=== PATIENT | male | born 1965 | race Caucasian/White ===

== ENCOUNTER 2016-07-21 18:09 | Emergency (ER) | payer OTHER ==
[2016-07-21] MEDS ORDERED: SODIUM CHLORIDE 0.9% 1,000 ML IV ONE (18:23)
[2016-07-21] MEDS ORDERED: ONDANSETRON 4 MG/2 ML VIAL IVP STA (18:24)
[2016-07-21] MEDS ORDERED: HYDROmorphone 1 MG/ML 1 ML SYRINGE IVP STA ×2 (18:24→22:16)
--- NOTE | 2016-07-21 18:26 | ED ---
Abdominal Pain HPI - General Chief Complaint: Abdominal Pain Stated Complaint: side pain Time Seen by Provider: 07/21/16 18:19 Source: patient, RN notes reviewed Mode of arrival: ambulatory Limitations: no limitations - History of Present Illness Initial Comments: Patient is a 50-year-old absence emergency room for evaluation of right-sided abdominal pain and flank pain. Patient states the pain began around 2:30 this afternoon. Patient states pain began as a dull throbbing pain. Patient states since then the pain got worse. Patient states he can't get comfortable no matter which way he weighs. Patient states the pain is not worse with movement. Patient states he did have a kidney stone about 30 years ago. Patient states she is not sure if this is the same as his previous kidney stone pain. Patient denies any pain or burning during urination, trouble urinating or blood in urine. Patient states he had one episode of loose stools before arrival. Patient states he had one episode of vomiting. Patient states he had 2 hernia surgeries when he was an infant. Patient denies any other abdominal surgeries. Patient has no fevers or chills. Patient denies chest pain or shortness of breath. Patient states having 10 out of 10 constant throbbing pain. Patient denies taking anything for his symptoms. - Related Data Previous Rx's Medication Instructions Recorded HYDROcodone/APAP 5-325MG [[place] 1 tab PO Q6HR PRN #15 tab 07/21/16 5-325] Ibuprofen [Motrin] 800 mg PO Q6HR PRN #20 tab 07/21/16 Ondansetron Odt [Zofran Odt] 4 mg PO Q8HR PRN #12 tab 07/21/16 Tamsulosin HCl [Flomax] 0.4 mg PO DAILY #10 cap.er.24h 07/21/16 Allergies Allergy/AdvReac Type Severity Reaction Status Date / Time No Known Allergies Allergy Verified 07/21/16 18:34 Review of Systems ROS Statement: Those systems with pertinent positive or pertinent negative responses have been documented in the HPI. ROS Other: All systems not noted in ROS Statement are negative. Past Medical History Past Medical History: No Reported History Additional Past Medical History / Comment(s): kidney stones History of Any Multi-Drug Resistant Organisms: None Reported Past Surgical History: Hernia Repair Past Psychological History: No Psychological Hx Reported Smoking Status: Current every day smoker Past Alcohol Use History: None Reported Past Drug Use History: None Reported General Exam - General Exam Comments Initial Comments: Pacing around the exam room, uncomfortable secondary to pain Limitations: no limitations General appearance: alert Head exam: Present: atraumatic, normocephalic, normal inspection Eye exam: Present: normal appearance ENT exam: Present: normal exam Neck exam: Present: normal inspection Respiratory exam: Present: normal lung sounds bilaterally. Absent: respiratory distress Cardiovascular Exam: Present: regular rate, normal rhythm, normal heart sounds GI/Abdominal exam: Present: soft, tenderness (RLQ), normal bowel sounds. Absent : distended, guarding, rebound, rigid Extremities exam: Present: normal inspection Back exam: Present: normal inspection, CVA tenderness (R). Absent: CVA tenderness (L) Neurological exam: Present: alert, oriented X3, CN II-XII intact, normal gait Psychiatric exam: Present: normal affect, normal mood Skin exam: Present: warm, dry, intact, normal color. Absent: rash Course Vital Signs 07/21/16 07/21/16 07/21/16 18:12 21:34 22:48 Temperature 97.3 F L 99.3 F 98.4 F Pulse Rate 88 85 82 Respiratory 20 18 16 Rate Blood Pressure 146/90 119/66 117/69 O2 Sat by Pulse 94 L 94 L Oximetry Medical Decision Making - Medical Decision Making Patient is a 50-year-old male presents emergency room for evaluation of flank pain. CT abdomen/pelvis: There are several right renal colic to light. There is a obstructing calculus at the right ureteral pelvic junction with perinephritic edema and hydronephrosis. Patient states he is feeling better after medications given. Will send patient home with pain medications and have her follow-up with urologist. Patient states she understands everything that was discussed with him. Return parameters discussed. Case discussed with Dr. Aguilar. - Lab Data Result diagrams: 07/21/16 18:55 07/21/16 18:55 Lab Results 07/21/16 07/21/16 07/21/16 Range/Units 18:55 18:55 20:15 WBC 12.2 H (3.8-10.6) k/uL RBC 5.95 H (4.30-5.90) m/uL Hgb 17.8 H (13.0-17.5) gm/dL Hct 51.5 (39.0-53.0) % MCV 86.6 (80.0-100.0) fL MCH 29.9 (25.0-35.0) pg MCHC 34.5 (31.0-37.0) g/dL RDW 12.8 (11.5-15.5) % Plt Count 291 (150-450) k/uL Neutrophils % 84 % Lymphocytes % 11 % Monocytes % 4 % Eosinophils % 1 % Basophils % 1 % Neutrophils # 10.2 H (1.3-7.7) k/uL Lymphocytes # 1.3 (1.0-4.8) k/uL Monocytes # 0.4 (0-1.0) k/uL Eosinophils # 0.1 (0-0.7) k/uL Basophils # 0.1 (0-0.2) k/uL Sodium 142 (137-145) mmol/L Potassium 4.3 (3.5-5.1) mmol/L Chloride 108 H (98-107) mmol/L Carbon Dioxide 20 L (22-30) mmol/L Anion Gap 14 mmol/L BUN 18 (9-20) mg/dL Creatinine 0.90 (0.66-1.25) mg/dL Est GFR (MDRD) Af Amer >60 (>60 ml/min/1.73 sqM) Est GFR (MDRD) Non-Af >60 (>60 ml/min/1.73 sqM) Glucose 110 H (74-99) mg/dL Calcium 10.6 H (8.4-10.2) mg/dL Total Bilirubin 1.0 (0.2-1.3) mg/dL AST 31 (17-59) U/L ALT 44 (21-72) U/L Alkaline Phosphatase 73 (38-126) U/L Total Protein 7.6 (6.3-8.2) g/dL Albumin 4.8 (3.5-5.0) g/dL Urine Color Yellow Urine Appearance Turbid (Clear) Urine pH 8.5 H (5.0-8.0) Ur Specific [place] 1.020 (1.001-1.035) Urine Protein 1+ H (Negative) Urine Glucose (UA) Negative (Negative) Urine Ketones 2+ H (Negative) Urine Blood Moderate H (Negative) Urine Nitrate Negative (Negative) Urine Bilirubin Negative (Negative) Urine Urobilinogen <2.0 (<2.0) mg/dL Ur Leukocyte Esterase Negative (Negative) Urine RBC 165 H (0-5) /hpf Urine WBC 1 (0-5) /hpf Amorphous Sediment Many H (None) /hpf - Radiology Data Radiology results: report reviewed, image reviewed Disposition Clinical Impression: Ureteral stone Disposition: HOME SELF-CARE Condition: Good Instructions: Kidney Stones (ED), Flank Pain (ED) Additional Instructions: Drink plenty of fluids. Take medications as needed. Please follow-up with a urologist for further evaluation. If any new symptom arises or symptoms worsen, return to ER as soon as possible. Prescriptions: HYDROcodone/APAP 5-325MG [[place] 5-325] 1 tab PO Q6HR PRN #15 tab PRN Reason: Pain Ibuprofen [Motrin] 800 mg PO Q6HR PRN #20 tab PRN Reason: Pain Ondansetron Odt [Zofran Odt] 4 mg PO Q8HR PRN #12 tab PRN Reason: Nausea Tamsulosin HCl [Flomax] 0.4 mg PO DAILY #10 cap.er.24h Referrals: Antonio Casarez MD [STAFF PHYSICIAN] - 1-2 days Time of Disposition: 22:12
[2016-07-21 19:09] LABS: Basophils # (A) 0.1 k/uL (0-0.2); Basophils % (A) 1 %; Eosinophils # (A) 0.1 k/uL (0-0.7); Eosinophils % (A) 1 %; HCT 51.5 % (39.0-53.0); HDW 2.79; HGB 17.8 gm/dL (13.0-17.5); Luc # (Auto) 0.12; Luc % (Auto) 1; Lymphocytes # (A) 1.3 k/uL (1.0-4.8); Lymphocytes % (A) 11 %; MCH 29.9 pg (25.0-35.0); MCHC 34.5 g/dL (31.0-37.0); MCV 86.6 fL (80.0-100.0); Mean Platelet Volume 7.6; Monocytes # (A) 0.4 k/uL (0-1.0); Monocytes % (A) 4 %; Neutrophils # (A) 10.2 k/uL (1.3-7.7); Neutrophils % (A) 84 %; RBC 5.95 m/uL (4.30-5.90); RDW 12.8 % (11.5-15.5); WBC 12.2 k/uL (3.8-10.6); WBC (Perox) 11.38
[2016-07-21 19:15] LABS: ALT 44 U/L (21-72); AST 31 U/L (17-59); Alkaline Phosphatase 73 U/L (38-126); Anion Gap 14 mmol/L; Blood Urea Nitrogen 18 mg/dL (9-20); Calcium 10.6 mg/dL (8.4-10.2); Carbon Dioxide 20 mmol/L (22-30); Chloride 108 mmol/L (98-107); Glucose 110 mg/dL (74-99); Non-African American GFR(MDRD) >60 (>60 ml/min/1.73 sqM); Potassium 4.3 mmol/L (3.5-5.1); Sodium 142 mmol/L (137-145); Total Protein 7.6 g/dL (6.3-8.2)
--- NOTE | 2016-07-21 19:17 | XR ---
EXAMINATION TYPE: XR KUB DATE OF EXAM: 07/21/2016 7:10 PM COMPARISON: NONE HISTORY: Right lower quadrant pain TECHNIQUE: 2 views FINDINGS: Bowel gas pattern is normal. There is no sign of intestinal obstruction or pneumoperitoneum . Fecal pattern is normal. Lung bases are clear. There are no pathologic calcifications over the kidn eys. IMPRESSION: Nonacute abdomen.
[2016-07-21] MEDS ORDERED: KETOROLAC 30 MG/ML 1 ML VIAL IVP STA (19:45)
[2016-07-21 21:00] LABS: Amorphous Sediment,Urine Many /hpf; Appearance,Urine Turbid (Clear); Bilirubin,Urine Negative (Negative); Glucose,Urine (UA) Negative (Negative); Ketones,Urine 2+ (Negative); Leukocyte Esterase,Urine Negative (Negative); Nitrite,Urine Negative (Negative); PH, Urine 8.5 (5.0-8.0); Particle Count 21870; Protein,Urine 1+ (Negative); RBC,Urine 165 /hpf (0-5); UA Billing (MACRO vs. MICRO) MICRO; Urobilinogen,Urine <2.0 mg/dL (<2.0); WBC,Urine 1 /hpf (0-5)
[2016-07-21] MEDS ORDERED: SODIUM CHLORIDE 0.9% 500 ML IV ONE (21:01)
[2016-07-21] MEDS ORDERED: TAMSULOSIN 0.4 MG CAP.ER.24H PO STA (21:02)
--- NOTE | 2016-07-21 21:41 | CT ---
EXAMINATION TYPE: CT abdomen pelvis wo con DATE OF EXAM: 07/21/2016 9:24 PM COMPARISON: NONE HISTORY: Right flank pain. CT DLP: 777.10 mGycm Automated exposure control for dose reduction was used. TECHNIQUE: Helical acquisition of images was performed from the lung bases through the pelvis. FINDINGS: The lung bases are clear. There is no pleural effusion. Heart size is normal. Liver spleen pancreas gallbladder appear normal. Bile ducts are not dilated. There is no adrenal mass . There are small right renal calculi that measure up to 3 mm. There is mild right-sided hydronephros is. There is a 6 mm calculus at the right ureteropelvic junction. There is no retroperitoneal adenopathy. Appendix appears normal. I see no intestinal wall thickening. There are no dilated loops. Bladder distends smoothly. Kidneys have normal size. I see no bony destr uctive process. There is narrowing at L4-5 disc. CONCLUSION: There are several small right renal calculi. There is a obstructing calculus at the right ureteropelv ic junction with perinephric edema and hydronephrosis. Normal appendix.
[2016-07-21 22:50] VITALS: BP 117/69; PULSE 82; RESP 16; TEMP 98.4
== END 2016-07-21 22:50 | disposition home or self-care (01) ==
LOC: EC 18:09
DX: N13.2 Hydronephrosis with renal and ureteral calculous obstruction (principal); F17.200 Nicotine dependence, unspecified, uncomplicated; Z87.442 Personal history of urinary calculi
CPT/HCPCS: 36415; 80053; 85025; 81001; 74000; 74176; 99284; 96374; 96375 ×2; 96376; 96361; J2405; J1885; J1170

== ENCOUNTER 2021-06-05 15:02 | Emergency (ER) | payer OTHER ==
--- NOTE | 2021-06-05 15:23 | ED ---
General Adult HPI <FrancahudsonradhaFinn Celia - Last Filed: 06/05/21 18:14> - General Source: patient, RN notes reviewed Mode of arrival: ambulatory Limitations: no limitations - History of Present Illness -: hour(s) (14) Location: left, upper extremity (thumb) Radiation: non-radiation Severity scale (1-10): 6 Quality: aching Consistency: constant Improves with: none Worsens with: movement, other Associated Symptoms: denies other symptoms Treatments Prior to Arrival: none <Rodo Troy - Last Filed: 06/05/21 18:27> - General Chief complaint: Extremity Injury, Upper Stated complaint: fall, left thumb injury, In Quicker 3:00 Time Seen by Provider: 06/05/21 15:15 - History of Present Illness Initial comments: This is a well-appearing 55-year-old male, alert and oriented 4, presents to the emergency room with complaints of left thumb pain. Patient states that he tripped walking through a doorway and his thumb got stuck in the latch as he fell. They did try to reduce the dislocation at home by pulling on it and it did not resolve. He came in today for increased swelling and continued deformity. He has not taken anything for pain and is declining any medication at this time. He states he is a smoker but no other medical history. He denies any other injuries. Did not loose consciousness (Rodo Troy) - Related Data Previous Rx's Medication Instructions Recorded HYDROcodone/APAP 5-325MG [[place] 1 tab PO Q6HR PRN #15 tab 07/21/16 5-325] Ibuprofen [Motrin] 800 mg PO Q6HR PRN #20 tab 07/21/16 Ondansetron Odt [Zofran Odt] 4 mg PO Q8HR PRN #12 tab 07/21/16 Tamsulosin HCl [Flomax] 0.4 mg PO DAILY #10 cap.er.24h 07/21/16 Ibuprofen [Motrin] 600 mg PO Q8HR PRN #30 tab 06/05/21 Allergies Allergy/AdvReac Type Severity Reaction Status Date / Time No Known Allergies Allergy Verified 06/05/21 15:14 Review of Systems ROS Other: All systems not noted in ROS Statement are negative. <Finn Calloway - Last Filed: 06/05/21 18:14> ROS Other: All systems not noted in ROS Statement are negative. <jordonRodo - Last Filed: 06/05/21 18:27> ROS Statement: Those systems with pertinent positive or pertinent negative responses have been documented in the HPI. Past Medical History Past Medical History: No Reported History Additional Past Medical History / Comment(s): kidney stones History of Any Multi-Drug Resistant Organisms: None Reported Past Surgical History: Hernia Repair Past Psychological History: No Psychological Hx Reported Smoking Status: Current every day smoker Past Alcohol Use History: Occasional Past Drug Use History: None Reported <Rodo Troy - Last Filed: 06/05/21 18:27> General Exam Limitations: no limitations General appearance: alert, in no apparent distress Head exam: Present: atraumatic, normal inspection Eye exam: Present: normal appearance, EOMI. Absent: periorbital swelling Neck exam: Present: normal inspection, full ROM. Absent: meningismus Respiratory exam: Present: normal lung sounds bilaterally. Absent: respiratory distress, wheezes, rales, rhonchi, stridor, chest wall tenderness, accessory muscle use, decreased breath sounds Cardiovascular Exam: Present: regular rate, normal rhythm, normal heart sounds. Absent: systolic murmur, diastolic murmur, rubs, gallop, clicks Left Elbow exam: Present: normal inspection, full ROM. Absent: tenderness Forearm Wrist exam: Present: normal inspection, full ROM. Absent: tenderness Hand Wrist exam: Present: tenderness (Left thenar surface), swelling, deformity (Left thumb), dislocation. Absent: normal inspection, full ROM, abrasion, laceration, crepitus, erythema, amputation, nail avulsion, subungual hematoma Neuro motor exam: Present: wrist extension intact Vascular: Present: normal capillary refill, radial pulse. Absent: vascular compromise Neurological exam: Present: alert, oriented X3, normal gait Psychiatric exam: Present: normal affect, normal mood Skin exam: Present: warm, dry, intact, normal color. Absent: rash, cyanosis, diaphoretic <Rodo Troy - Last Filed: 06/05/21 18:27> Course Vital Signs 06/05/21 15:11 Temperature 98.4 F Pulse Rate 95 Respiratory 20 Rate Blood Pressure 141/94 O2 Sat by Pulse 95 Oximetry Procedures - Orthopedic Joint Reduction Joint #1 Consent Obtained: verbal consent Side: left Joint Reduction Location: finger Analgesia: other (morphine) Technique Used: traction/counter-traction, direct manipulation Post-Reduction Neuro Exam: intact Post-Reduction Vascular Exam: intact Post Reduction X-Ray Obtained: Yes Post Reduction X-Ray Results: reduced Splint Applied: Yes Patient Tolerated Procedure: well - Orthopedic Splinting/Casting Injury #1 Side: left Upper Extremity Injury Location: hand Upper Extremity Immobilizer: thumb spica <ElliFinn Celia - Last Filed: 06/05/21 18:14> Medical Decision Making <Rodo Troy - Last Filed: 06/05/21 18:27> - Medical Decision Making Well-appearing 55-year-old male presents to the emergency room with a dislocation of his left thumb he states after falling last night at 1:30 in the morning. Patient states that family member tried to relocate it is unable to. This is increased pain and swelling today. There is no snuffbox tenderness. Sensation is intact capillary refill is less than 2 seconds radial pulses are present. There is a posterior dislocation of the first MP joint, there is no evidence of fracture. Patient unable to tolerate reduction without pain medication. He was given 4 mg of morphine IM. (Rodo Troy) Disposition <Finn Calloway - Last Filed: 06/05/21 18:14> Is patient prescribed a controlled substance at d/c from ED?: No Time of Disposition: 18:26 <Rodo Troy - Last Filed: 06/05/21 18:27> Clinical Impression: Thumb dislocation Disposition: HOME SELF-CARE Instructions (If sedation given, give patient instructions): Finger Dislocation (ED) Additional Instructions: Rest, ice and elevate, take Motrin every 6-8 hours for inflammation. Wear splint until seen by orthopedics. Return to the emergency room for any new or concerning symptoms including numbness, discoloration or increased pain. Follow-up with the primary care doctor next week. Prescriptions: Ibuprofen [Motrin] 600 mg PO Q8HR PRN #30 tab PRN Reason: Pain Referrals: None,Stated [Primary Care Provider] - 1-2 days Corby Philip DO [Doctor of Osteopathic Medicine] - 1-2 days
--- NOTE | 2021-06-05 16:03 | XR ---
EXAMINATION TYPE: XR hand complete LT DATE OF EXAM: 06/05/2021 COMPARISON: NONE HISTORY: Pain TECHNIQUE: 3 views FINDINGS: There is posterior dislocation of the first MP joint. I see no fracture. Metacarpals are in tact. IMPRESSION: Posterior dislocation of the thumb at the MP joint.
[2021-06-05] MEDS ORDERED: MORPHINE SULFATE 4 MG/ML SYRINGE IVP STA (16:09)
[2021-06-05] MEDS ORDERED: MORPHINE SULFATE 4 MG/ML SYRINGE IM STA (16:09)
[2021-06-05] MEDS ORDERED: IBUPROFEN 600 MG TAB PO STA (17:34)
--- NOTE | 2021-06-05 18:18 | XR ---
EXAMINATION TYPE: XR hand limited LT DATE OF EXAM: 06/05/2021 COMPARISON: NONE HISTORY: Post reduction TECHNIQUE: 2 views FINDINGS: There is anatomic position of the first MP joint of the left hand. I see no fracture line. IMPRESSION: Anatomic reduction of the left thumb.
[2021-06-05 18:54] VITALS: BP 139/80; PULSE 92; RESP 18; TEMP 98.1
== END 2021-06-05 18:54 | disposition home or self-care (01) ==
LOC: EC 15:02
DX: S63.115A Dislocation of metacarpophalangeal joint of left thumb, initial encounter (principal); F17.200 Nicotine dependence, unspecified, uncomplicated; W01.0XXA Fall on same level from slipping, tripping and stumbling without subsequent striking against object, initial encounter; Y93.01 Activity, walking, marching and hiking; Y92.009 Unspecified place in unspecified non-institutional (private) residence as the place of occurrence of the external cause
CPT/HCPCS: 73120; 73130; 99283; 26742; 96372; J2270